=== PATIENT | male | born 1950 | race Caucasian/White ===

== ENCOUNTER → 2017-01-26 | Outpatient (CLI) | payer OTHER ==
[~2017-01-26] MED LIST: ASPI81TA28 PO; ATOR10TA82 PO; BNC/40 PO; CLB100 PO; MISCTAB78 PO; MULT-506 PO; RABE20TA5 PO
== END | disposition home or self-care (01) ==
LOC: C.RDSM 08:05
PROVIDERS: ATTEND Physical Medicine & Rehabilitation Sports Medicine
DX: M25.531 Pain in right wrist (principal)